=== PATIENT | male | born 1980 | race Caucasian/White ===

== ENCOUNTER → 2018-04-20 06:25 | Day surgery (SDC) | payer OTHER ==
[~2018-04-20] VITALS: Ht 190.5 cm; Wt 81.6 kg
[~2018-04-20 06:25] MED LIST: ANUSOL-HC 2.5%30 GM RC; DEXILANT30 MG PO; NORCO 10-325 TA1 TAB PO; VALIUM5 MG PO
[2018-04-20 06:53] VITALS: BP 116/70; Ht 190.5 cm; Wt 81.6 kg
== END | disposition home or self-care (01) ==
LOC: D.OPS 04-19 14:49 → D.PAN 08:00 → D.OPS 08:00
DX: K64.8 Other hemorrhoids (principal); Z01.812 Encounter for preprocedural laboratory examination

== ENCOUNTER 2018-04-24 23:02 | Emergency (ER) | payer OTHER ==
[~2018-04-24] VITALS: Ht 190.5 cm; Wt 90.9 kg
[~2018-04-24 23:02] MED LIST changes: -ANUSOL-HC 2.5%30 GM RC; -NORCO 10-325 TA1 TAB PO
[2018-04-24 23:11] VITALS: Ht 190.5 cm; Wt 90.9 kg
[2018-04-25] MEDS ORDERED: ANUSOL-HC 2.5%30 GM RC (02:09)
[2018-04-25] MEDS ORDERED: NORCO 10-325 TA1 TAB PO (02:09)
[2018-04-25 02:49] VITALS: BP 139/98
== END 2018-04-25 02:49 | disposition home or self-care (01) ==
LOC: D.ER 23:02
DX: K62.89 Other specified diseases of anus and rectum (principal); Z98.890 Other specified postprocedural states

== ENCOUNTER → 2019-03-01 08:20 | Outpatient (CLI) | payer OTHER ==
[2018-04-24 23:11] VITALS: BMI 25.0
[~2019-03-01 08:20] MED LIST changes: +ANUSOL-HC 2.5%30 GM RC; +NORCO 10-325 TA1 TAB PO; +PERCOCET 5-3251 TAB PO; +VISTARIL50 MG PO; +ZOFRAN ODT4 MG/UDTAB PO
--- NOTE | 2019-03-01 09:10 | NUR ---
PT CONSENTED FOR LEFT SHOULDER ARTHROGRAM. TIME OUT PERFORMED AT 0850 BY GRICELDA CONNOLLY RT(R) AND DR REYNOLDS.
== END | disposition home or self-care (01) ==
LOC: D.RAD 02-20 14:30 → D.MRI 02-20 15:30 → D.RAD 08:00
PROVIDERS: ATTEND Nurse Practitioner Family
DX: S46.002D Unspecified injury of muscle(s) and tendon(s) of the rotator cuff of left shoulder, subsequent encounter (principal); X58.XXXA Exposure to other specified factors, initial encounter

== ENCOUNTER 2019-03-17 06:28 | Day surgery (SDC) | payer OTHER ==
[~2019-03-17] VITALS: Ht 190.5 cm; Wt 83.0 kg
[~2019-03-17 06:28] MED LIST changes: -PERCOCET 5-3251 TAB PO; -VISTARIL50 MG PO; -ZOFRAN ODT4 MG/UDTAB PO
[2019-03-17 08:07] VITALS: BP 132/79; Ht 190.5 cm; Wt 83.0 kg
[2019-03-17] MEDS ORDERED: PERCOCET 5-3251 TAB PO (08:52)
[2019-03-17] MEDS ORDERED: ZOFRAN ODT4 MG/UDTAB PO (08:53)
[2019-03-17] MEDS ORDERED: VISTARIL50 MG PO (08:53)
--- NOTE | 2019-03-17 11:22 | OP ---
PATIENT NAME: DOROTHEA WEBER MEDICAL RECORD: [id number] :81 LOCATION:[facility] ADMISSION DATE: SURGEON: VALERIANO JEFFERSON DO DATE OF OPERATION: 03/17/2019 PROCEDURE PERFORMED: Left shoulder arthroscopy with biceps tenodesis, subacromial decompression, distal clavicle excision, and labral debridement. PREOPERATIVE DIAGNOSES: Left shoulder pain, left shoulder subacromial impingement, AC joint arthritis, and SLAP tear. POSTOPERATIVE DIAGNOSES: Left shoulder pain, left shoulder subacromial impingement, AC joint arthritis, and SLAP tear. INDICATIONS: Mr. Weber is a 38-year-old male who has gone through a shoulder scope in the past with the labral repair. He has had pain for several years in the left shoulder with overhead movement and any lifting the bicep. An MRI was done, which showed a SLAP tear and subacromial impingement and AC joint arthritis and he wanted something done as he tried all nonoperative management for this. I informed him of the risks including infection, bleeding, damage to nerves and vessels, need for further surgery, fractures, continued pain, cramping, and blood clots and even . He signed the consent. SURGEON: Valeriano Jefferson DO DESCRIPTION OF PROCEDURE: The patient was given 900 mg of clindamycin preoperatively. He was given a block by anesthesia in the preoperative area. He was taken to the operative suite. I was assisted by Cheryl Wick, certified surgical first front ventilator. He was laid in the right lateral decubitus position with the left shoulder up. He was sedated and LMA was placed. The left shoulder was then prepped and draped in sterile fashion. Timeout was performed, everyone was in agreement of the correct side, site, patient and procedure. We then began the procedure by inserting an 18-gauge spinal needle into the posterior shoulder and to the shoulder joint and inflating it with 60 mL of normal saline. The posterior portal was then established with an 11-blade scalpel and trocar was entered into the joint. The SLAP tear was seen right away and the subscapularis tendon was inspected and seen to be in good repair as well as the supraspinatus and infraspinatus. There were no loose bodies in the joint. There was no damage to any of the cartilage and the inferior gutter was cleared of debris. The anterior portal was then established with an 18-gauge spinal needle and 11-blade scalpel. Trocar was entered into the joint. The bicep tendon was pulled up and seen no more defined in the SLAP tear, which did extend from the anterior aspect to the posterior aspect from about the 10 o'clock position to the 2 o'clock position. Burner was then brought in and the bicep tenotomy was done as well as a labral debridement. We then went to the subacromial space. The 18-gauge spinal needle was used to establish the lateral portal and 11-blade scalpel. The subacromial decompression was done at that time and part of the distal lateral acromion was removed any spurs and doing an acromioplasty. The anterior portal was then entered with the shaver and the distal clavicle was removed, opening up the AC joint to approximately 7 mm. The anterior humerus was then addressed. An incision was made. Careful dissection was made down to the long head of the biceps tendon. This was pulled out and seemed to be quite inflamed. The whipstitch was then made on it and a unicortical hole was made for a 2.9 JuggerLoc. This was put into the bone and then the whipstitched tendon was tied to that and cinched down to the anterior humerus. This was then OPERATIVE REPORT [id number] DOROTHEA WEBER tied and a free needle was used to go back through the tendon and this was tied down to that. Excess tendon and sutures were cut at that time. The site was then irrigated with saline and closed with 2-0 Vicryl in inverted interrupted fashion, 4-0 Monocryl ran on the skin. Portal sites were then closed with 4-0 Monocryl in an inverted interrupted fashion and covered with Dermabond glue as well as the biceps tenodesis site. Telfa and Tegaderm were placed on all these sides. The patient was then awakened and taken to recovery in stable condition. BLOOD LOSS: Minimal. COMPLICATIONS: None. TRANSINT:[id number] Voice Confirmation ID: [id number] DOCUMENT ID: [id number] VALERIANO JEFFERSON DO at 1122 CC: [id number] DICTATION DATE: 03/17/19 1033 MIRROR FRAMER: 03/17/19 1100 [facility] [address] [place] [address]
== END 2019-03-17 11:50 | disposition home or self-care (01) ==
LOC: D.OPS 06:28 → D.PAN 16:00
PROVIDERS: ATTEND Orthopaedic Surgery
DX: M25.812 Other specified joint disorders, left shoulder (principal); M19.012 Primary osteoarthritis, left shoulder; S43.432A Superior glenoid labrum lesion of left shoulder, initial encounter; X58.XXXA Exposure to other specified factors, initial encounter

== ENCOUNTER → 2019-04-13 18:58 | Outpatient (CLI) | payer OTHER ==
[2019-03-17 08:07] VITALS: BMI 22.9
[~2019-04-13 18:58] MED LIST changes: +PERCOCET 5-3251 TAB PO; +VISTARIL50 MG PO; +ZOFRAN ODT4 MG/UDTAB PO
[2019-04-13 19:21] LABS: BASOPHILS 0.5 % (0-2); HEMATOCRIT 47.9 % (42.0-54.0); HEMOGLOBIN 16.2 g/dL (13.5-17.5); IMMATURE GRANULOCYTES 0.2 % (0-5); LYMPHOCYTES 27.7 % (15-50); MCHC 33.8 g/dL (31.0-37.0); MCV 91.8 fL (80.0-100.0); MEAN PLATELET VOLUME 10.1 fL (7.4-10.4); MONOCYTES 10.5 % (2-11); NEUTROPHILS 58.1 % (40-80); PLATELET COUNT 294 10x3/uL (130-400); RBC 5.22 10x6/uL (4.20-6.10); RDW 13.8 % (11.5-14.5); WBC 6.4 10x3/uL (4.8-10.8)
[2019-04-13 19:40] LABS: CALC OSMOLALITY 274 mosm/kg (275-300); CARBON DIOXIDE 26.6 mmol/L (21.0-32.0); CHLORIDE - SERUM 104 mmol/L (98-107); CREATININE - SERUM 0.9 mg/dL (0.6-1.3); GLUCOSE 71 mg/dL (74-106); POTASSIUM - SERUM 4.2 mmol/L (3.5-5.1); SODIUM 140 mmol/L (136-145); UREA NITROGEN 8 mg/dL (7-18); eGFR NON AFRICAN AMERICAN > 90 mL/min (90-120)
[2019-04-13 19:42] LABS: C-REACTIVE PROTEIN 0.3 mg/dL (0.0-0.9)
[2019-04-13 20:35] LABS: ERYTHROCYTE SEDIMENTATION RATE 3 mm/hr (0-15)
== END | disposition home or self-care (01) ==
LOC: D.LABREF 18:58
PROVIDERS: ATTEND Orthopaedic Surgery
DX: M25.512 Pain in left shoulder (principal)

== ENCOUNTER 2019-07-07 05:52 | Day surgery (SDC) | payer MEDICAID ==
[~2019-07-07] VITALS: Ht 190.5 cm; Wt 83.0 kg
[~2019-07-07 05:52] MED LIST changes: +ULTRAM50 MG PO
[2019-07-07 06:15] VITALS: BP 132/89; Ht 190.5 cm; Wt 83.0 kg
[2019-07-07] MEDS ORDERED: VISTARIL50 MG PO (08:14)
[2019-07-07] MEDS ORDERED: NORCO-7.51 TAB PO (08:14)
--- NOTE | 2019-07-07 12:38 | OP ---
PATIENT NAME: DOROTHEA WEBER MEDICAL RECORD: [id number] :81 LOCATION:[facility] ADMISSION DATE: SURGEON: VALERIANO JEFFERSON DO DATE OF OPERATION: 07/07/2019 PROCEDURE PERFORMED: Right shoulder arthroscopy with subacromial decompression, distal clavicle excision, labral debridement, and bicep tenodesis. PREOPERATIVE DIAGNOSES: Right shoulder SLAP tear, AC joint arthritis, subacromial impingement. POSTOPERATIVE DIAGNOSES: Right shoulder SLAP tear, AC joint arthritis, subacromial impingement. INDICATIONS: Mr. Weber is a 38-year-old male, who had his left shoulder done, same procedure, a few months ago. Said the right shoulder is having the same symptoms. Got an MR arthrogram, which indeed did show a SLAP tear as well as the other findings, AC joint arthritis and subacromial impingement. I informed him of the risks including continued pain, loss of motion, need for further surgery, infection, bleeding and even , and he signed the consent. SURGEON: Valeriano Jefferson DO DESCRIPTION OF PROCEDURE: The patient was taken to the operative suite after given a block by anesthesia in preoperative area, given 900 mg of clindamycin. He was taken to the operative suite and laid in the left lateral decubitus position with the right shoulder up. The right shoulder was prepped and draped in sterile fashion. A timeout was performed. Everyone was in agreement with correct site, side, patient, and procedure. He had been sedated and LMA was placed. We then began by inserting an 18-gauge spinal needle through the posterior shoulder and inflating the shoulder joint with 60 mL of normal saline and then the 11 blade scalpel was used to establish a posterior portal after the 18-gauge spinal needle was removed. I then established the anterior portal with an 18-gauge spinal needle and 11-blade scalpel and inspected the shoulder. A trocar was brought in. There was a type 2 SLAP tear noted and then the rotator cuff, supraspinatus, infraspinatus, and subscapularis tendons were all in good shape. No tear was seen on the articular side. There was nothing in the inferior gutter. The articular cartilage was looking to be in good shape. There was no fissuring or cartilage defect. We then brought the burner in through the anterior portal and did a bicep tenotomy at that point and a labral debridement. I debrided the fraying of the labrum. I then went to the subacromial space and established a lateral portal with an 18-gauge spinal needle and 11-blade scalpel. A shaver and burner were in to do a subacromial decompression and distal clavicle excision opening up the AC joint to approximately 7 mm. We then removed the anterolateral aspect of the acromion. Once the shaver was brought in and cleaned off also of the bursa and inspected the rotator cuff on the bursal side, there were no tears seen in there. The suction was turned on and water was turned off, and the attention was drawn to the anterior humerus. A small incision was made on the anterior humerus. Careful dissection was made down the long head of bicep tendon. It was pulled out through the incision and a single unicortical hole was placed in the humerus. A 2.9 JuggerLoc unicortical bicep fixation was used, inserted into the hole to ensure it was in good position and it stayed very well. We then put the tendon through the loop and cinched it down to the humerus. Once that was cinched down in good position, I cut the excess suture and went through the OPERATIVE REPORT [id number] HONGDOROTHEA TETE bicep tendon twice with suture and with free needle and tied this down. Excess tendon and suture were cut at that time. The site was irrigated and the incisions were closed by Bassam Carrera, certified surgical director of first impressions, first with 2-0 Vicryl on the open part of the anterior humerus in an inverted interrupted fashion and 4-0 Monocryl ran on the part. Then the portal sites were closed with 4-0 Monocryl in an inverted interrupted fashion. Dermabond glue was placed on all of them. Telfa and Tegaderm were placed. He was awakened and taken to recovery in stable condition. BLOOD LOSS: Minimal. COMPLICATIONS: None. TRANSINT:[id number] Voice Confirmation ID: [id number] DOCUMENT ID: [id number] VALERIANO JEFFERSON DO at 1238 CC: [id number] DICTATION DATE: 07/07/19818 BUILDING MAINTENANCE SUPERINTENDENT: 07/07/19 1236 [facility] 07/07/19 [address] [place] [address]
== END 2019-07-07 09:45 | disposition home or self-care (01) ==
LOC: D.OPS 05:52 → D.PAN 08:15 → D.OPS 09:45
PROVIDERS: ATTEND Orthopaedic Surgery
DX: S43.431A Superior glenoid labrum lesion of right shoulder, initial encounter (principal); X58.XXXA Exposure to other specified factors, initial encounter; M13.811 Other specified arthritis, right shoulder; M75.41 Impingement syndrome of right shoulder; M25.511 Pain in right shoulder